=== PATIENT | male | born 1995 | race African-American/Black ===

== ENCOUNTER 2017-08-01 21:38 | Emergency (ER) | payer OTHER ==
[~2017-08-01] VITALS: Ht 175.3 cm; Wt 88.2 kg
[2017-08-01] MEDS ORDERED: NS 1,000 ML IV ONE (23:15)
[2017-08-01] MEDS ORDERED: MORPHINE 2 MG/ML 1ML SYRINGE IV PRN (23:15)
[2017-08-01] MEDS ORDERED: ONDANSETRON 4MG/2ML VIAL (J2405) IV ONE (23:15)
[2017-08-01 23:23] LABS: BASO % 0.2 % (0.0-1.0); EOS # 0.1 10^3/uL (0.0-0.50); EOS % 0.9 % (0.0-3.0); IMMATURE GRANULOCYTE % 0.2 % (0-0); LYMPH # 1.7 10^3/uL (1.5-6.5); LYMPH % 15.9 % (24.0-44.0); MEAN CORPUSCULAR HEMOGLOBIN 26.3 pg (27.0-33.0); MEAN CORPUSCULAR HGB CONC 33.3 g/dl (32.0-36.5); MONO # 1.3 10^3/uL (0.0-0.8); MONO % 12.3 % (0.0-5.0); NEUTROPHILS # 7.5 10^3/uL (1.8-7.7); NEUTROPHILS % 70.5 % (36.0-66.0); PLATELET COUNT, AUTOMATED 202 10^3/uL (150-450); RED CELL DISTRIBUTION WIDTH 14.2 % (11.5-14.5); WHITE BLOOD COUNT 10.6 10^3/uL (4.0-10.0)
[2017-08-01 23:43] LABS: ALBUMIN 4.2 GM/DL (3.2-5.2); ALKALINE PHOSPHATASE 205 U/L (45-117); ALT/SGPT 163 U/L (12-78); ANION GAP 9 MEQ/L (8-16); AST/SGOT 116 U/L (15-37); BILIRUBIN,TOTAL 2.7 MG/DL (0.2-1.0); BLOOD UREA NITROGEN 11 MG/DL (7-18); CALCIUM LEVEL 9.4 MG/DL (8.5-10.1); CARBON DIOXIDE LEVEL 26 MEQ/L (21-32); CHLORIDE LEVEL 99 MEQ/L (98-107); CREATININE FOR GFR 1.05 MG/DL (0.70-1.30); GLOMERULAR FILTRATION RATE > 60.0 (>60); GLUCOSE, FASTING 99 MG/DL (70-105); POTASSIUM SERUM 3.5 MEQ/L (3.5-5.1); SODIUM LEVEL 134 MEQ/L (136-145); TOTAL PROTEIN 8.4 GM/DL (6.4-8.2)
--- NOTE | 2017-08-02 02:30 | REPUSA ---
CLINICAL HISTORY: Abdominal pain. TECHNIQUE: Realtime sonographic images were obtained in multiple projections. COMMENTS: The liver is of starry roman appearance. No discrete hepatic mass is seen. There is no intra or extrahepatic biliary ductal dilatation. CBD measures 2.2 mm. The gallbladder is physiologically distended without evidence of calculi. The gallbladder wall is not thickened and there is no pericholecystic fluid. There is no abdominal as cites. The right kidney measures 10.7x5.7x4.9 cm , free of hydronephrosis. IMPRESSION: Starry roman appearance suspicious for mild hepatitis. Unremarkable gallbladder. Thank you for your kind referral of this patient.
[2017-08-02 03:16] VITALS: BP 141/68
== END 2017-08-02 03:17 | disposition home or self-care (01) ==
LOC: M ED 21:38
DX: K75.9 Inflammatory liver disease, unspecified (principal); R10.9 Unspecified abdominal pain
CPT/HCPCS: 76705; 80048; 80076; 83690; 85025; 86255; 86705; 86709; 86803; 87340; 93041; 96374; 96375; 99284; J2405